=== PATIENT | male | born 1995 | race African-American/Black ===

== ENCOUNTER 2023-12-20 22:34 | Emergency (ER) | payer MEDICAID ==
[~2023-12-20] VITALS: Ht 180.3 cm; Wt 150.0 kg
[2023-12-20 22:35] VITALS: BP 176/114; PULSE 88; RESP 20; O2SAT 98
[2023-12-20 23:09] VITALS: TEMP 98.4
[2023-12-20] MEDS: ACETAMINOPHEN 325MG TABLET PO STA (23:09)
[2023-12-20] MEDS: ONDANSETRON 4MG ODT PO STA (23:10)
[2023-12-20 23:32] LABS: BASOPHILS % 0.2 % (0.0-2.0); EOSINOPHILS % 2.8 % (0.0-5.0); HEMATOCRIT. 42.5 % (42.0-52.0); LYMPHOCYTES % 15.4 % (20.0-50.0); MEAN CORPUSCULAR HEMOGLOBIN 29.6 pg (28.0-32.0); MEAN CORPUSCULAR VOLUME 89.9 fL (80.0-94.0); MEAN PLATELET VOLUME 8.1 fl (7.4-10.4); MONOCYTES % 4.5 % (2.0-8.0); NEUTROPHILS % 77.1 % (40.0-76.0); PLATELET 367 x1000/uL (130-400); RED BLOOD CELL COUNT 4.73 mill/uL (4.7-6.1); RED CELL DISTRIBUTION WIDTH 14.1 % (11.6-14.6); WHITE BLOOD COUNT 12.7 x1000/uL (4.5-11.0)
[2023-12-20 23:41] LABS: CHLORIDE 103 mEq/L (98-107); POTASSIUM 4.2 mEq/L (3.5-5.1); SODIUM 137 mEq/L (136-145)
[2023-12-20 23:42] LABS: CALCIUM 10.3 mg/dL (8.7-10.4); CARBON DIOXIDE 28 mEq/L (21-32)
[2023-12-20 23:47] LABS: CREATININE 1.1 mg/dL (0.6-1.3); GLUCOSE 112 mg/dL (70-105); UREA NITROGEN BLOOD 11 mg/dL (9-23)
[2023-12-20 23:49] LABS: ACETAMINOPHEN < 2 ug/mL (10-30)
[2023-12-20 23:53] LABS: ETHANOL BLOOD < 10 mg/dL (<10)
== END 2023-12-20 23:13 | disposition left against medical advice (07) ==
LOC: ER 22:34
DX: R07.89 Other chest pain (principal); R11.0 Nausea; I10 Essential (primary) hypertension
CPT/HCPCS: 80048; 80307; 80329; 80320; 85025; 36415; 93005; 99284; Q0162; G0480